=== PATIENT | female | born 1985 | race African-American/Black ===

== ENCOUNTER 2017-01-21 22:36 | Emergency (ER) | payer SELFPAY ==
[~2017-01-21] VITALS: Ht 165.1 cm; Wt 61.3 kg
[2017-01-21 23:17] VITALS: BP 116/78
== END 2017-01-22 02:25 | disposition left against medical advice (07) ==
LOC: ER 22:39
DX: R42 Dizziness and giddiness (principal); R53.1 Weakness; J02.9 Acute pharyngitis, unspecified; R51 Headache; Z53.21 Procedure and treatment not carried out due to patient leaving prior to being seen by health care provider